=== PATIENT | male | born 1950 | race Caucasian/White ===

== ENCOUNTER 2018-01-17 09:17 | Outpatient (CLI) ==
--- NOTE | 2018-01-17 10:21 | CT ---
EXAM: CT Head HISTORY: Right hemiparesis COMPARISON: 01/21/2017 TECHNIQUE: CT head performed without contrast FINDINGS: There is no mass effect, midline shift, or intracranial hemmorhage. Gaona white differenti ation is preserved. There is no extra-axial collection. The ventricles, sulci, and basal cisterns a re patent and symmetric. 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 Cerebral volume loss. There is no depressed calvarial fracture. The mas toid air cells are clear. The visualized paranasal sinuses are clear. There are intracranial atherosc lerotic calcifications. IMPRESSION: 1. No acute intracranial abnormality. 2. Chronic ischemic disease of the white matter with chronic lacunar infarction bilateral basal gangl ia. Cerebral volume loss.
== END 2018-01-17 09:18 | disposition home or self-care (01) ==
LOC: RAD 09:17
PROVIDERS: ATTEND Nurse Practitioner Family
DX: G81.91 Hemiplegia, unspecified affecting right dominant side (principal)